=== PATIENT | female | born 1945 | race Caucasian/White ===

== ENCOUNTER 2025-03-16 14:10 | Outpatient (CLI) | payer MEDICARE, BC | END 2025-03-16 14:11 | disposition home or self-care (01) | LOC: CSHWCC 14:10 | PROVIDERS: ATTEND Nurse Practitioner Family | DX: L97.322 Non-pressure chronic ulcer of left ankle with fat layer exposed (principal); C79.00 Secondary malignant neoplasm of unspecified kidney and renal pelvis; D50.9 Iron deficiency anemia, unspecified | CPT/HCPCS: 11042 ==

== ENCOUNTER 2025-07-06 12:02 | Outpatient (CLI) | payer MEDICARE, BC | END 2025-07-06 12:03 | disposition home or self-care (01) | LOC: CSHWCC 12:02 | PROVIDERS: ATTEND Nurse Practitioner Family | DX: L89.622 Pressure ulcer of left heel, stage 2 (principal); L89.892 Pressure ulcer of other site, stage 2; I70.243 Atherosclerosis of native arteries of left leg with ulceration of ankle; L97.322 Non-pressure chronic ulcer of left ankle with fat layer exposed; C79.00 Secondary malignant neoplasm of unspecified kidney and renal pelvis; D50.9 Iron deficiency anemia, unspecified | CPT/HCPCS: 11042 ==

== ENCOUNTER 2025-07-09 13:43 | Outpatient (CLI) | payer MEDICARE, BC | END 2025-07-09 13:44 | disposition home or self-care (01) | LOC: CSHWCC 13:43 | PROVIDERS: ATTEND Nurse Practitioner Family | DX: L89.622 Pressure ulcer of left heel, stage 2 (principal); L89.892 Pressure ulcer of other site, stage 2; I70.212 Atherosclerosis of native arteries of extremities with intermittent claudication, left leg; L97.322 Non-pressure chronic ulcer of left ankle with fat layer exposed; C79.00 Secondary malignant neoplasm of unspecified kidney and renal pelvis; D50.9 Iron deficiency anemia, unspecified | CPT/HCPCS: 29581 ==

== ENCOUNTER 2025-08-03 15:20 | Outpatient (CLI) | payer MEDICARE, BC | END 2025-08-03 15:21 | disposition home or self-care (01) | LOC: CSHWCC 15:20 | PROVIDERS: ATTEND Nurse Practitioner Family | DX: L89.622 Pressure ulcer of left heel, stage 2 (principal); L89.892 Pressure ulcer of other site, stage 2; I70.243 Atherosclerosis of native arteries of left leg with ulceration of ankle; L97.322 Non-pressure chronic ulcer of left ankle with fat layer exposed; L97.312 Non-pressure chronic ulcer of right ankle with fat layer exposed; C79.00 Secondary malignant neoplasm of unspecified kidney and renal pelvis; D50.9 Iron deficiency anemia, unspecified | CPT/HCPCS: 11042; G0463; 99213 ==